=== PATIENT | female | born 1960 | race African-American/Black ===

== ENCOUNTER 2021-08-07 14:23 | Outpatient (CLI) | payer BC | END 2021-08-07 14:24 | disposition home or self-care (01) | LOC: CSHRAD 14:23 | PROVIDERS: ATTEND Internal Medicine Rheumatology | DX: M54.50 Low back pain, unspecified (principal); M47.816 Spondylosis without myelopathy or radiculopathy, lumbar region | CPT/HCPCS: 72110 ==

== ENCOUNTER 2023-04-23 10:22 | Outpatient (CLI) | payer BC | END 2023-04-23 10:23 | disposition home or self-care (01) | LOC: CSHRAD 10:22 | PROVIDERS: ATTEND Specialist | DX: R07.9 Chest pain, unspecified (principal) | CPT/HCPCS: 71046 ==